=== PATIENT | male | born 1985 | race Caucasian/White ===

== ENCOUNTER 2018-07-31 21:49 | Emergency (ER) | payer SELFPAY ==
[~2018-07-31] VITALS: Ht 185.4 cm; Wt 72.6 kg
--- NOTE | 2018-07-31 22:31 | NUR ---
BIBFAMILY C/O INTERMITTENT CHEST PAIN SINCE LAST NIGHT, NUMB HANDS CURRENTLY W/ NO C/O CP. VSS. PLACED ON A MONITOR, ECG DONE. WILL CONT TO MONITO R
[2018-07-31] MEDS ORDERED: LORAZEPAM 1 MG TABLET ONE (22:51)
[2018-07-31] MEDS ORDERED: LORAZEPAM 1 MG TABLET PO ONE (23:00)
--- NOTE | 2018-07-31 23:13 | NUR ---
Patient is resting comfortably in bed with eyes closed. Easily aroused. VSS. a ffamily at the bed side .will cont to monitor ,
--- NOTE | 2018-07-31 23:26 | NUR ---
Patient discharged to home in stable condition. Written and verbal after care instructions given. Patient verbalizes understanding of instruction.
[2018-07-31 23:50] VITALS: BP 121/74
== END 2018-07-31 23:51 | disposition home or self-care (01) ==
LOC: ER 21:57
DX: F41.0 Panic disorder [episodic paroxysmal anxiety] (principal); F17.210 Nicotine dependence, cigarettes, uncomplicated

== ENCOUNTER 2021-09-06 13:18 | Emergency (ER) | payer MEDICAID, OTHER ==
[~2021-09-06] VITALS: Ht 177.8 cm; Wt 80.3 kg
[2021-09-06 13:35] VITALS: BP 142/72
--- NOTE | 2021-09-06 13:58 | NUR ---
Patient discharged to home in stable condition. Written and verbal after care instructions given. Patient verbalizes understanding of instruction.
== END 2021-09-06 13:58 | disposition home or self-care (01) ==
LOC: ER 13:30
DX: M79.672 Pain in left foot (principal); F17.210 Nicotine dependence, cigarettes, uncomplicated; W22.8XXA Striking against or struck by other objects, initial encounter; Y93.89 Activity, other specified; Y92.89 Other specified places as the place of occurrence of the external cause; Y99.8 Other external cause status
CPT/HCPCS: 73630-TC

== ENCOUNTER 2023-12-12 15:54 | Emergency (ER) | payer MEDICAID, OTHER ==
[~2023-12-12] VITALS: Ht 177.8 cm; Wt 79.4 kg
[2023-12-12 18:19] VITALS: BP 118/74; TEMP 98.6; O2SAT 99
== END 2023-12-12 18:20 | disposition home or self-care (01) ==
LOC: ER 15:56
DX: S06.0XAA Concussion with loss of consciousness status unknown, initial encounter (principal); F17.200 Nicotine dependence, unspecified, uncomplicated; V89.2XXA Person injured in unspecified motor-vehicle accident, traffic, initial encounter; Y93.89 Activity, other specified; Y92.410 Unspecified street and highway as the place of occurrence of the external cause; Y99.8 Other external cause status
CPT/HCPCS: 70450-TC; 73030-TC